=== PATIENT | female | born 1950 | race Caucasian/White ===

== ENCOUNTER 2023-05-10 09:01 | Outpatient (AMB) | payer MEDICARE, SELFPAY ==
[2023-05-10 09:06] VITALS: BP 110/70; PULSE 81; TEMP 36.3; O2SAT 97
--- NOTE | 2023-05-10 09:06 | MHC.OFFWIV ---
Intake Vital Signs 05/10/23 09:06 Weight 174 lb BP 110/70 Blood Pressure Location Lt brachial Position Sitting Pulse 81 Pulse Source Pulse Oximeter Temp 97.3 F Temp Source Temporal Artery Scan Pulse Oximetry (%) 97 Oxygen Delivery Method Room Air Intake Visit Reasons: EP body rash (lobby) Intake Note: pt is here today for body rash started today Patient Tobacco Use Status: Never used Tobacco Allergies No Known Allergies Allergy (Verified 05/10/23 09:08) Do you need a note to return to daycare/school/sports/work: No HPI HPI Comments History of Present Illness Details 72 y/o male patient who presents to walk in clinic with c/o Rash on her neck since this morning. Pt reports 3 days ago, she started using a new Vitamin C facial cream. Denies any changes on her diet or soap. PFSH Social History Patient Tobacco Use Status: Never used Tobacco Review of Systems Const All systems reviewed & are unremarkable except as noted in HPI and below Physical Exam Vital Signs: Last Vital Signs Temp 97.3 F 05/10/23 09:06 Pulse 81 05/10/23 09:06 BP 110/70 05/10/23 09:06 Pulse Ox 97 05/10/23 09:06 Oxygen Delivery Method Room Air 05/10/23 09:06 Const General: comfortable and no acute distress Orientation/consciousness: patient oriented x3 Skin Other: Hives neck and face. Rashes: rashes noted (Around Neck and face) Neuro General: patient oriented x3, gait normal and moves all extremities Psych Mental Status: mental status grossly normal Assessment & Plan Assessment & Plan (1) Allergic contact dermatitis: Code(s): L23.9 - Allergic contact dermatitis, unspecified cause Qualifiers: Contact dermatitis trigger: unspecified trigger Qualified Code(s): L23.9 - Allergic contact dermatitis, unspecified cause Plan: - Stop using cream - Take medicines as directed. - RTC if symptoms worse. Medications: New prednisone 50 mg PO DAILY 5 days 5 tabs 0RF L23.9 - Allergic contact dermatitis, unspecified cause hydroxyzine HCl 25 mg PO TID PRN 30 tabs 0RF itching L23.9 - Allergic contact dermatitis, unspecified cause triamcinolone acetonide 0.5% 1 appl topical BID 15 grams 0RF L23.9 - Allergic contact dermatitis, unspecified cause Coding Level of Care Code Est Pt Level 3 (40307) Diagnoses Allergic contact dermatitis, unspecified trigger L23.9 Contact dermatitis trigger: unspecified trigger Time Spent (min) 15
== END 2023-05-10 10:00 | disposition home or self-care (01) ==
PROVIDERS: Visit Provider Nurse Practitioner Family
DX: L23.9 Allergic contact dermatitis, unspecified cause (principal)
CPT/HCPCS: 99213